=== PATIENT | female | born 1955 | race Caucasian/White ===

== ENCOUNTER 2016-12-04 18:41 | Emergency (ER) | payer OTHER ==
[2016-12-04 19:23] LABS: EOSINOPHIL 0.8 % (0-5); HCT 40.3 % (37.0-47.0); HGB 13.6 g/dl (12.5-16.0); LYMPHOCYTE 27.2 % (15-48); MCH 27.2 pg (25.0-31.0); MCHC 33.7 g/dL (32.0-36.0); MCV 80.6 fL (78.0-100.0); MONOCYTE 8.4 % (0-12); MPV 12.8 fL (6.0-9.5); NEUTROPHIL 62.6 % (41-80); PLT 231 K/uL (150-400); RDW 13.9 % (11.5-14.0); WBC 7.6 K/uL (4.0-10.5)
[2016-12-04 19:28] LABS: INR 1.11 (0.9-1.2); PROTHROMBIN TIME 13.9 SECONDS (11.7-14.0); PTT 21.3 SECONDS (23.2-31.4)
[2016-12-04 19:36] LABS: ALBUMIN 4.4 g/dL (3.4-4.8); BILIRUBIN - TOTAL 0.5 mg/dL (0.1-1.0); CREATININE 1.1 mg/dL (0.5-1.0); GLOBULIN (CALCULATION) 3.7 g/dL (2.2-4.2); MAGNESIUM 1.81 mg/dL (1.40-2.10); POTASSIUM 4.2 mmol/L (3.5-5.1); TOTAL PROTEIN 8.1 g/dL (6.4-8.3)
[2016-12-04 19:37] LABS: MYOGLOBIN 225 ng/mL (26-65); PRO-BNP 86 pg/mL (0-125); TROPONIN T < 0.010 ng/mL
[2016-12-04 19:42] LABS: CKMB 7.41 ng/mL (0.97-4.94)
[2016-12-04 23:17] LABS: BILIRUBIN NEGATIVE (NEGATIVE); BLOOD TRACE-LYSED Ery/uL (NEGATIVE); CLARITY CLEAR (CLEAR); COLOR YELLOW (YELLOW); GLUCOSE (U) 3+ mg/dL (NORMAL); KETONE (U) TRACE mg/dL (NEGATIVE); LEUKOCYTES NEGATIVE Leu/uL (NEGATIVE); NITRITE NEGATIVE (NEGATIVE); PROTEIN NEGATIVE (NEGATIVE); UROBILINOGEN 0.2 mg/dL (0.2-1.0); pH 5.5 (5.0-9.0)
[2016-12-04 23:22] LABS: URINARY RBC RARE
[2016-12-04 23:23] LABS: BACTERIA TRACE
[2016-12-04 23:49] LABS: CREATININE 0.8 mg/dL (0.5-1.0); POTASSIUM 4.2 mmol/L (3.5-5.1)
== END 2016-12-05 00:50 | disposition home or self-care (01) ==
LOC: FER 18:41
PROVIDERS: Emergency Medicine Emergency Medical Services
DX: R07.89 Other chest pain (principal); E11.649 Type 2 diabetes mellitus with hypoglycemia without coma; R10.817 Generalized abdominal tenderness; R82.90 Unspecified abnormal findings in urine; E86.9 Volume depletion, unspecified; I25.810 Atherosclerosis of coronary artery bypass graft(s) without angina pectoris; I11.9 Hypertensive heart disease without heart failure; E78.5 Hyperlipidemia, unspecified; Z82.49 Family history of ischemic heart disease and other diseases of the circulatory system; Z88.2 Allergy status to sulfonamides; Z88.5 Allergy status to narcotic agent; Z79.84 Long term (current) use of oral hypoglycemic drugs; Z79.4 Long term (current) use of insulin; Z79.82 Long term (current) use of aspirin; Z79.02 Long term (current) use of antithrombotics/antiplatelets; Z79.899 Other long term (current) drug therapy; Z95.1 Presence of aortocoronary bypass graft; Z95.5 Presence of coronary angioplasty implant and graft
CPT/HCPCS: 36415; 71010; 80048; 80053; 81001; 82150; 82550; 82553; 83605; 83690; 83735; 83874; 83880; 84484; 85025; 85610; 85730; 87040; 87088; 93005; J2270; J2405; J2765

== ENCOUNTER 2020-08-23 19:01 | Emergency (ER) | payer MEDICARE, OTHER ==
[2020-08-23 19:57] LABS: BASOPHIL 0.7 % (0-2); BILIRUBIN NEGATIVE (NEGATIVE); BLOOD 1+ Ery/uL (NEGATIVE); CLARITY HAZY (CLEAR); COLOR ORANGE (YELLOW); EOSINOPHIL 1.7 % (0-7); GLUCOSE (U) TRACE mg/dL (NORMAL); HCT 40.6 % (37.0-47.0); HGB 12.5 g/dl (12.5-16.0); LEUKOCYTES 2+ Leu/uL (NEGATIVE); LYMPHOCYTE 24.8 % (15-48); MCH 27.5 pg (25.0-31.0); MCHC 30.8 g/dL (32.0-36.0); MCV 89.2 fL (78.0-100.0); MONOCYTE 9.3 % (0-12); MPV 11.8 fL (6.0-9.5); NITRITE POSITIVE (NEGATIVE); NRBC 0; PLT 238 K/uL (150-400); PROTEIN 3+ mg/dL (NEGATIVE); RBC 4.55 M/uL (4.20-5.40); RDW 13.2 % (11.5-14.0); WBC 9.7 K/uL (4.0-10.5); pH 5.5 (5.0-9.0)
[2020-08-23 20:08] LABS: BACTERIA 3+; URINARY WBC TNTC
[2020-08-23 20:15] LABS: ALBUMIN 3.2 g/dL (3.4-5.0); BILIRUBIN - TOTAL 0.2 mg/dL (0.2-1.0); BUN/CREAT RATIO (CALC) 23.9 RATIO; CREATININE 0.88 mg/dL (0.51-0.95); GLOBULIN (CALCULATION) 4.9 g/dL; POTASSIUM 4.1 mmol/L (3.5-5.1); TOTAL PROTEIN 8.1 g/dL (6.4-8.2)
[2020-08-23] MEDS ORDERED: CIPRO500 MG PO (20:51)
[2020-08-23] MEDS ORDERED: PYRIDIUM100 MG PO (20:51)
== END 2020-08-23 21:45 | disposition home or self-care (01) ==
LOC: FER 19:01
PROVIDERS: Emergency Medicine
DX: N30.90 Cystitis, unspecified without hematuria (principal); I10 Essential (primary) hypertension; E11.9 Type 2 diabetes mellitus without complications; E78.5 Hyperlipidemia, unspecified; Z98.890 Other specified postprocedural states; Z95.5 Presence of coronary angioplasty implant and graft; Z88.2 Allergy status to sulfonamides; Z88.5 Allergy status to narcotic agent; Z88.8 Allergy status to other drugs, medicaments and biological substances; Z79.82 Long term (current) use of aspirin; Z79.899 Other long term (current) drug therapy; Z79.4 Long term (current) use of insulin
CPT/HCPCS: 36415; 80053; 81001; 85025; 87040; 87076; 87088; 87186; J0696

== ENCOUNTER 2021-01-31 16:25 | Inpatient (IN) | payer MEDICARE, OTHER ==
[~2021-01-31] VITALS: Ht 162.6 cm; Wt 102.5 kg
[~2021-01-31 16:25] MED LIST: CIPRO500 MG PO; PYRIDIUM100 MG PO
[2021-01-31 17:14] LABS: BASOPHIL 0.3 % (0-2); EOSINOPHIL 0.1 % (0-7); HCT 35.9 % (37.0-47.0); HGB 11.5 g/dl (12.5-16.0); LYMPHOCYTE 6.2 % (15-48); MCH 25.9 pg (25.0-31.0); MCV 80.9 fL (78.0-100.0); MONOCYTE 6.7 % (0-12); MPV 12.4 fL (6.0-9.5); NEUTROPHIL 86.2 % (41-80); NRBC 0; PLT 216 K/uL (150-400); RBC 4.44 M/uL (4.20-5.40); RDW 14.1 % (11.5-14.0); WBC 15.4 K/uL (4.0-10.5)
[2021-01-31 17:53] LABS: BILIRUBIN - TOTAL 0.5 mg/dL (0.2-1.0); BUN/CREAT RATIO (CALC) 28.8 RATIO; CREATININE 1.39 mg/dL (0.51-0.95); GLOBULIN (CALCULATION) 5.7 g/dL; POTASSIUM 4.7 mmol/L (3.5-5.1); TOTAL PROTEIN 7.7 g/dL (6.4-8.2)
[2021-01-31 17:57] LABS: CORONAVIRUS 2019 SARS-COV-2 NEGATIVE (NEGATIVE); INFLUENZA A NAA NEGATIVE (NEGATIVE)
[2021-01-31 18:04] LABS: LACTIC ACID 2.1 mmol/L (0.4-1.9)
[2021-01-31] MEDS ORDERED: ISOSORBIDE MONO60 MG PO (21:07)
[2021-01-31] MEDS ORDERED: NORVASC5 MG PO (21:07)
[2021-01-31] MEDS ORDERED: HCTZ12.5 MG PO (21:07)
[2021-01-31] MEDS ORDERED: PLAVIX75 MG PO (21:08)
[2021-01-31] MEDS ORDERED: PRINIVIL20 MG PO (21:08)
[2021-01-31] MEDS ORDERED: TOPROL XL 25MG25 MG PO (21:08)
[2021-01-31] MEDS ORDERED: LEXAPRO 10MG TA10 MG PO (21:09)
[2021-01-31] MEDS ORDERED: CRESTOR40 MG PO (21:09)
[2021-01-31] MEDS ORDERED: ASPIRIN EC81 MG PO (21:09)
[2021-01-31 21:24] LABS: BILIRUBIN NEGATIVE (NEGATIVE); BLOOD 2+ Ery/uL (NEGATIVE); CLARITY CLOUDY (CLEAR); COLOR YELLOW (YELLOW); GLUCOSE (U) 3+ mg/dL (NORMAL); LEUKOCYTES 2+ Leu/uL (NEGATIVE); NITRITE NEGATIVE (NEGATIVE); PROTEIN 2+ mg/dL (NEGATIVE); UROBILINOGEN 0.2 mg/dL (0.2-1.0); pH 5.5 (5.0-9.0)
[2021-01-31 21:30] LABS: BACTERIA 4+; URINARY WBC TNTC
[2021-02-01 04:02] LABS: BASOPHIL 0.2 % (0-2); EOSINOPHIL 0.1 % (0-7); HCT 33.1 % (37.0-47.0); HGB 10.8 g/dl (12.5-16.0); MCH 26.3 pg (25.0-31.0); MCHC 32.6 g/dL (32.0-36.0); MCV 80.7 fL (78.0-100.0); MONOCYTE 8.7 % (0-12); MPV 12.4 fL (6.0-9.5); NEUTROPHIL 79.4 % (41-80); NRBC 0; PLT 235 K/uL (150-400); WBC 13.6 K/uL (4.0-10.5)
[2021-02-01 04:29] LABS: CREATININE 1.17 mg/dL (0.51-0.95); POTASSIUM 3.8 mmol/L (3.5-5.1)
[2021-02-01 11:45] LABS: IRON % SATURATION 13.1 %SAT (20-50); RETICULOCYTE COUNT 1.2 % (1.0-2.0)
[2021-02-01] MEDS ORDERED: HUMULIN 70100 UNIT/1 SC (11:59)
[2021-02-02 05:57] LABS: BASOPHIL 0.4 % (0-2); EOSINOPHIL 0.7 % (0-7); HCT 29.4 % (37.0-47.0); HGB 9.2 g/dl (12.5-16.0); LYMPHOCYTE 24.7 % (15-48); MCH 26.1 pg (25.0-31.0); MCHC 31.3 g/dL (32.0-36.0); MCV 83.3 fL (78.0-100.0); MONOCYTE 8.4 % (0-12); MPV 12.5 fL (6.0-9.5); NEUTROPHIL 64.4 % (41-80); NRBC 0; PLT 168 K/uL (150-400); RBC 3.53 M/uL (4.20-5.40); RDW 14.6 % (11.5-14.0); WBC 11.4 K/uL (4.0-10.5)
[2021-02-02 06:19] LABS: ALBUMIN 1.4 g/dL (3.4-5.0); BILIRUBIN - TOTAL 0.2 mg/dL (0.2-1.0); BUN/CREAT RATIO (CALC) 26.6 RATIO; CREATININE 1.09 mg/dL (0.51-0.95); GLOBULIN (CALCULATION) 3.7 g/dL; MAGNESIUM 1.6 mg/dL (1.8-2.4); POTASSIUM 3.9 mmol/L (3.5-5.1)
[2021-02-02 06:24] LABS: TOTAL PROTEIN 5.1 g/dL (6.4-8.2)
--- NOTE | 2021-02-02 16:26 | NUR ---
02/02/21 Ms. Macedo lives alone. She does not use any DME. She was provided with brochures of emergency alert system per her request. - Ms. Macedo prefers outpatient services should she require IV antibiotics at discharge.
[2021-02-04 05:22] LABS: BASOPHIL 0.5 % (0-2); EOSINOPHIL 2.3 % (0-7); HCT 31.5 % (37.0-47.0); HGB 9.7 g/dl (12.5-16.0); LYMPHOCYTE 30.9 % (15-48); MCH 25.8 pg (25.0-31.0); MCHC 30.8 g/dL (32.0-36.0); MCV 83.8 fL (78.0-100.0); MPV 12.1 fL (6.0-9.5); NEUTROPHIL 56.4 % (41-80); NRBC 0; PLT 289 K/uL (150-400); RBC 3.76 M/uL (4.20-5.40); RDW 15.3 % (11.5-14.0); WBC 9.1 K/uL (4.0-10.5)
[2021-02-04 05:41] LABS: CREATININE 0.94 mg/dL (0.51-0.95); POTASSIUM 4.3 mmol/L (3.5-5.1)
--- NOTE | 2021-02-04 14:59 | NUR ---
02/04/21 Ms. Macedo requested Outpatient PT at [facility]. An order was faxed. [facility] will call patient to schedule the appointment. Patient and MS Erika RN informed.
[2021-02-04] MEDS ORDERED: LEVAQUIN750 MG PO (16:07)
[2021-02-04] MEDS ORDERED: POLY-IRON150 MG PO (16:07)
[2021-02-05] MEDS ORDERED: ZOFRAN4 M1 PO (19:13)
== END 2021-02-04 17:35 | disposition home or self-care (01) | DRG 872 ==
LOC: FER 16:25 → FTCU 18:29 → FMS 02-01 11:18
PROVIDERS: Emergency Medicine; Nurse Practitioner; ADMIT Internal Medicine
DX: A41.51 Sepsis due to Escherichia coli [E. coli] (principal); N10 Acute pyelonephritis; E87.2 Acidosis; N17.9 Acute kidney failure, unspecified; R65.20 Severe sepsis without septic shock; E83.42 Hypomagnesemia; E11.65 Type 2 diabetes mellitus with hyperglycemia; D50.9 Iron deficiency anemia, unspecified; Z20.822 Contact with and (suspected) exposure to COVID-19; I10 Essential (primary) hypertension; E78.5 Hyperlipidemia, unspecified; I25.10 Atherosclerotic heart disease of native coronary artery without angina pectoris; J45.909 Unspecified asthma, uncomplicated; E86.0 Dehydration; E11.40 Type 2 diabetes mellitus with diabetic neuropathy, unspecified; Z95.1 Presence of aortocoronary bypass graft; Z95.5 Presence of coronary angioplasty implant and graft; Z86.73 Personal history of transient ischemic attack (TIA), and cerebral infarction without residual deficits; Z88.2 Allergy status to sulfonamides; Z88.8 Allergy status to other drugs, medicaments and biological substances; Z79.82 Long term (current) use of aspirin; Z79.899 Other long term (current) drug therapy
CPT/HCPCS: 36415; 36600; 80048; 80053; 81001; 82150; 82607; 82746; 82803; 82962; 83036; 83540; 83550; 83605; 83735; 84145; 84484; 85025; 87040; 87076; 87077; 87088; 87186; 97110; 97116; 97161; 97165; 97530; 97535; G0378; J0696; J1650; J2185; J2405; J2916; J3475; J7030; U0002

== ENCOUNTER 2021-02-05 14:11 | Emergency (ER) | payer MEDICARE, OTHER ==
[~2021-02-05 14:11] MED LIST changes: +ASPIRIN EC81 MG PO; +CRESTOR40 MG PO; +HCTZ12.5 MG PO; +HUMULIN 70100 UNIT/1 SC; +ISOSORBIDE MONO60 MG PO; +LEVAQUIN750 MG PO; +LEXAPRO 10MG TA10 MG PO; +NORVASC5 MG PO; +PLAVIX75 MG PO; +POLY-IRON150 MG PO; +PRINIVIL20 MG PO; +TOPROL XL 25MG25 MG PO
[2021-02-05 18:23] LABS: BASOPHIL 0.4 % (0-2); EOSINOPHIL 0.4 % (0-7); HCT 34.6 % (37.0-47.0); HGB 10.9 g/dl (12.5-16.0); LYMPHOCYTE 21.8 % (15-48); MCH 26.1 pg (25.0-31.0); MCHC 31.5 g/dL (32.0-36.0); MONOCYTE 6.4 % (0-12); MPV 11.3 fL (6.0-9.5); NEUTROPHIL 69.2 % (41-80); NRBC 0; PLT 393 K/uL (150-400); RBC 4.17 M/uL (4.20-5.40); RDW 15.9 % (11.5-14.0); WBC 9.8 K/uL (4.0-10.5)
[2021-02-05 18:36] LABS: ALBUMIN 1.8 g/dL (3.4-5.0); BILIRUBIN - TOTAL 0.3 mg/dL (0.2-1.0); BUN/CREAT RATIO (CALC) 10.1 RATIO; CREATININE 0.79 mg/dL (0.51-0.95); GLOBULIN (CALCULATION) 5.3 g/dL; TOTAL PROTEIN 7.1 g/dL (6.4-8.2)
[2021-02-05 18:44] LABS: LACTIC ACID 1.2 mmol/L (0.4-1.9)
[2021-02-05] MEDS ORDERED: ZOFRAN4 M1 PO (19:13)
== END 2021-02-05 20:33 | disposition home or self-care (01) ==
LOC: FER 14:11
PROVIDERS: Nurse Practitioner Family
DX: N39.0 Urinary tract infection, site not specified (principal); R14.0 Abdominal distension (gaseous); R11.2 Nausea with vomiting, unspecified; I10 Essential (primary) hypertension; Z88.2 Allergy status to sulfonamides; Z98.890 Other specified postprocedural states; Z88.8 Allergy status to other drugs, medicaments and biological substances; E11.9 Type 2 diabetes mellitus without complications; E78.5 Hyperlipidemia, unspecified; J45.909 Unspecified asthma, uncomplicated; Z79.899 Other long term (current) drug therapy; Z79.82 Long term (current) use of aspirin; Z79.4 Long term (current) use of insulin
CPT/HCPCS: 36415; 74022; 80053; 83605; 85025; 94010; J2405; J7030